=== PATIENT | male | born 1935 | race Caucasian/White ===

== ENCOUNTER 2019-05-29 16:21 | Observation (INO) | payer OTHER, SELFPAY ==
[2019-05-22 10:55] VITALS: BMI 30.5
[2019-05-28] VITALS (15 sets, daily range): BP systolic 109–157; BP diastolic 61–94; PULSE 64–80; RESP 11–20; TEMP 36.2–36.6; O2SAT 91–97; BMI 30.5
--- NOTE | 2019-05-28 15:26 | PM.PREOP ---
Pre-operative Note Interval Note History & Physical reviewed/Exam performed by Physician: Yes Changes to H&P: No
[2019-05-28] MEDS: CEFAZOLIN 2 GM/100 ML FROZ.PIGGY IV ×2 (16:04→23:33)
--- NOTE | 2019-05-28 16:31 | SUR.OPER ---
Prone on spine table, head in foam head support, padded chest and pelvic supports, gel pad at knees, lower legs supported by pillows; nipples, genitalia and toes free of pressure, arms secured on foam padded arm boards at <90 degrees abduction. Tape over blanket at thigh secured to table.
[2019-05-28] MEDS: BUPIVACAINE 0.25% W/ EPI 30 ML VIAL INJ (16:35)
[2019-05-28] MEDS: LACTATED RINGERS 1,000 ML 42 ML IV (16:37)
--- NOTE | 2019-05-28 16:39 | SUR.OPER ---
DENTURES AND HEARING AIDS IN LABELED CONTAINERS TO PACU WITH PATIENT
--- NOTE | 2019-05-28 17:47 | P.OP_ITS ---
Operative Date/Time/Diagnoses Date of procedure: 05/28/19 Time of procedure: 16:04 Pre-op diagnosis: 1. L2-3, L3-4 spinal stenosis 2. Neurogenic claudication Post-op diagnosis: same Procedure & Clinicians Procedure: 1. L2-3, L3-4 laminectomies with bilateral partial facetectomies 2. Utilization of microsurgical technique and operating microscope Same procedure as scheduled: Yes Indications: Patient has been having chronic back pain and worsening lumbar radiculopathy. Patient failed multiple conservative management with worsening pain weakness and numbness in her lower extremity. Patient has been having difficulty performing activity of daily living. After discussing risks benefits of treatment options, patient elected proceed with surgery. Surgeon: Rafi Florez [employer] Teacher: Maria Eugenia Hernandez'Brien Click Yes if Unassisted: No Anesthesia Type: General Operative Notes Closure Type: primary Specimen(s): none sent Estimated Blood Loss (mL): 50 Blood products transfused: none Procedure in detail: Patient was seen in the preoperative area. Risks and benefits of the surgery was discussed with the patient. Informed consent was obtained from the patient and placed in the chart. Surgical site was marked. Patient was taken to the operative room. General anesthesia was administered. Prophylactic antibiotic was given to the patient less than 30 min before the incision was made. Patient was placed into a prone position on the Eddy table. Patient's back was then prepped and draped in the sterile fashion. Time- out was performed at this time. Using AP and lateral C-arm imaging the interval between L2-3 L3-4 was identified and marked on patient's back. A midline incision was made over the L2-3 L3-4 interval. The fascia was incised in line with skin incision. Dissection was made down to the level of L2 and L3 lamina using bovie and a espinoza. Using microsurgical technique and operating microscope, a L2-3 L3-4 laminectomy was performed using a Kerrison rongeur, Leksell rongeur and micro pituitary. Liagamentum flavum was resected at the site of the laminotomy. Either side of the dura was exposed. Bilateral partial facetcomies was performed to further decompress the lateral recess. After the laminectomies was completed, the area medial lateral superior and inf erior to the area of the laminectomies was inspected and explored using a micro curette. No other impinging structure was identified. The wound was then irrigated with sterile normal saline. The deep fascia was closed with 1-0 Vicryl. The subcutaneous tissue was closed with 2-0 Vicryl. The skin was closed skin stefanie. Patient tolerated the procedure well. There were no complications. Patient was transferred recovery room in stable condition. Complications: none Post-operative Condition: stable Disposition: PACU Plan for aftercare: Admit for observation
[2019-05-28] MEDS: SODIUM CHLORIDE 0.9% 1,000 ML 100 ML IV (20:01)
--- NOTE | 2019-05-28 22:35 | PC.NURSE ---
Pt arrived at 1930 Resting at intervals this evening. Denies discomfort at this time. IV NS @ 100 into RFA via pump w/o incidence, Dsg to surgical back CDI. Call light w/in reach, bed alarm on for pt safety, Continue w/plan of care.
[2019-05-28] MEDS: OXYCODONE IR 5 MG TABLET 10 MG PO (23:32)
[2019-05-29] VITALS (10 sets, daily range): BP systolic 115–142; BP diastolic 60–77; PULSE 65–77; RESP 14–18; TEMP 36.7–37.4; O2SAT 95–97
[2019-05-29] MEDS: ACETAMINOPHEN 325 MG TABLET 650 MG PO (04:48)
--- NOTE | 2019-05-29 05:18 | PC.NURSE ---
Pt Axox3, VSS, Lung sounds clear bilaterally. Pt is JAMUL. Pt had 4/10 back pain. Medicated with 10mg of Oxycodone at 2330, and Tylenol 650mg at 0500. Pt has [place] Dressing clean/dry/intact. CMS is intact. SCD's are applied and IS is encouraged. Call light is within reach.
[2019-05-29] MEDS: CEFAZOLIN 2 GM/100 ML FROZ.PIGGY IV (07:40)
[2019-05-29] MEDS: DOCUSATE 100 MG CAPSULE PO ×2 (08:16→21:22)
[2019-05-29] MEDS: TAMSULOSIN 0.4 MG CAPSULE PO (08:16)
[2019-05-29] MEDS: guaiFENesin ER 600 MG TAB PO ×2 (08:16→21:22)
[2019-05-29] MEDS: dilTIAZem 30 MG TABLET 60 MG PO ×2 (08:17→21:22)
[2019-05-29] MEDS: CITALOPRAM 20 MG TABLET 40 MG PO (08:17)
[2019-05-29] MEDS: CARVEDILOL 12.5 MG TABLET PO ×2 (08:20→21:23)
[2019-05-29] MEDS: IPRATROPIUM HFA 2 PUFF INH (09:26)
[2019-05-29] MEDS: LEVALBUTEROL HFA 200 PUFF INH INH (09:26)
--- NOTE | 2019-05-29 10:09 | PT.IIE ---
Current Diagnoses Spinal stenosis, lumbar region with neurogenic claudication (05/28/19) Surgery Performed Operation Date: 05/28/19 15:15 Actual Procedures p L2-3, L3-4 Laminectomy(Not Applicable) - Rafi Florez MD Surgical History (Last Updated 05/22/19 @ 12:09 by Sherin Mckeon, RN) Hx of foot surgery (Acute) Hx of laminectomy (Acute) Medical History (Last Updated 05/22/19 @ 12:25 by Sherin Mckeon RN) Anxiety disorder (Acute) BPH (benign prostatic hyperplasia) (Acute) CKD (chronic kidney disease), stage III (Acute) COPD (chronic obstructive pulmonary disease) (Acute ~2017) Dementia (Acute) Elevated troponin level (Acute 04/08/19) Foot abscess, right (Acute) Former smoker (Acute) Gout (Acute) [place] (hard of hearing) (Acute) HTN (hypertension) (Acute) IBS (irritable bowel syndrome) (Acute) Incomplete left bundle branch block (LBBB) (Acute) Low back pain (Acute) MRSA (methicillin resistant Staphylococcus aureus) (Acute) Orthostatic hypotension (Acute) Polio (Acute) Short-term memory loss (Acute) SVT (supraventricular tachycardia) (Acute) Syncope (Acute 04/08/19) Systolic left heart failure, NYHA class 2 (Acute) Physical Therapy Inpatient Evaluation/Re-Eval M1 PT/OT-IP Prior Functional Status Start: 05/29/19 12:20 Freq: NEEDED Status: Active Protocol: Document 05/29/19 10:09 AB (Rec: 05/29/19 12:33 AB [id number]) Medical Review Prior Functional Status Medical History Reviewed Yes Communication able to make needs known; very [place] Mobility and Gait stated that he is modified independent with mobilities: uses 4WW for indoor ambulation and his hurrycane for outdoor ambulation Social History Household Members spouse Living Arrangements House Number of Floors (Floors) Two Floors Number of Stairs To Enter/Railing? pt stays on main level of the house has 4 steps to enter with bilateral rails Home Environment Standard Height Toilet,Walk in Shower Home Equipment Front Wheel Walker,Four Wheel Walker,Straight Cane,Shower Seat without Backrest,Hand Held Shower,Grab Bars Near Toilet,Grab Bars In Shower Employment Status Retired Additional Social History Comment pt has a hurrycane M2 PT-IP Current Condition Start: 05/29/19 12:20 Freq: NEEDED Status: Active Protocol: Document 05/29/19 10:09 AB (Rec: 05/29/19 12:33 AB [id number]) Physical Therapy Current Condition Current Condition Evaluation Date 05/29/19 Treatment Diagnosis s/p L2-3,L3-4 lami with facetectomies; difficulty in walking Onset Date 05/28/19 Precautions Lumbar Precautions Log Roll,No Twisting,Limit Bending,Lifting Restriction of 10 lbs,Gait Belt above Incisional Area M3 PT-IP Subjective Start: 05/29/19 12:20 Freq: NEEDED Status: Active Protocol: Document 05/29/19 10:09 AB (Rec: 05/29/19 12:33 AB [id number]) Subjective Physical Therapy Visit Type Type Initial Evaluation Visit Start Time 10:09 Visit Stop Time 10:57 Total Visit Minutes 48 Number of WHEAT GROWER Visits 0 Physical Therapy Visit Comments Patient Comments pt agreeable to do PT. Patient Goals to go home Therapy Pain Assessment Pain When Pain Assessed At Rest Pain Present Pain Present Pain Reported Location Back Intensity 4 Scale Used Numeric (1 - 10) Pain Management Techniques Apply Cold,Re-positioning, Timing of Activity with Medications M4 PT-IP Mobility and Gait Start: 05/29/19 12:20 Freq: NEEDED Status: Active Protocol: Document 05/29/19 10:09 AB (Rec: 05/29/19 12:33 AB [id number]) PT-Bed Mobility Assessment Rolling Type of Rolling Log Rolling Level of Assist Moderate Assistance,1 Person Assistance Supine to Sit Supine to Sit Moderate Assistance,Maximum Assistance,1 Person Assistance Sit to Supine Sit to Supine Minimal Assistance,1 Person Assistance PT-Transfer Assessment Sit to and From Stand Sit to and from Stand Minimal Assistance,1 Person Assistance,Use of Upper Extremities Equipment Transfer Assistive Device Bed Rail,Front Wheeled Walker Orthotic/Prosthetic Devices or Brace: No Transfers Transfer Destination Bed,Chair Transfer Technique Stand Step Pivot Transfer Ability Level of Assist Minimal Assistance,1 Person Assistance,Use of Upper Extremities Comments Mobility Comments (+) SOB/ wheezing during mobility. O2 sat 97% Gait Assessment Gait Gait Assistance Required: Minimum Assistance Distance (Feet) 15 Able to Maintain Weight Bearing Status Yes During Gait Assistive Devices Assistive Device Gait Belt,Front Wheeled Walker Orthotic/Prosthetic Devices or Brace: No Gait Deviations General Gait Pattern Decreased Stride Length, Decreased Feet Clearance Factors Limiting Gait Function Factors Limiting Gait Function Decreased Activity Tolerance, Decreased Strength,Limited Range of Motion,Pain,Poor Balance,Poor Safety Awareness, Respiratory Distress Comments Gait Comments pt can be impulsive and requires cues for safety. pt ambulated in room and refused to do further ambulation stating that he is tired. PT-Balance Assessment Sitting Balance and Reactions Static Sitting Balance Ability Good Dynamic Sitting Balance Ability Good Standing Balance and Reactions Static Standing Balance Ability Fair Dynamic Standing Balance Ability Fair Device Used FWW M5 PT-IP Objective Assessments Start: 05/29/19 12:20 Freq: NEEDED Status: Active Protocol: Document 05/29/19 10:09 AB (Rec: 05/29/19 12:33 [id number]) Orientation Orientation/Cognition Level of Alertness Alert Orientation Name,Place,Situation Language Function Ability Hard of Hearing Safety Awareness Decreased Safety Awareness Memory Description Short Term Impaired,Rock Climbing Instructor Impaired Gross Range of Motion Lower Extremity ROM Assessment Within Functional Limits Strength Lower Extremity Strength Assessment Bilaterally Impaired Hip 4-/5 Knee 4-/5 Sensation Assessment Sensation Gross Sensation WNL Muscle Tone Muscle Tone WNL Yes M6 PT-IP Treatment Start: 05/29/19 12:20 Freq: NEEDED Status: Active Protocol: Document 05/29/19 10:09 AB (Rec: 05/29/19 12:33 [id number]) Physical Therapy Treatment Education Education Provided Precautions,Weight Bearing Status,Post-Op Packet,Safety M7 PT-IP Assessment and Plan Start: 05/29/19 12:20 Freq: NEEDED Status: Active Protocol: Document 05/29/19 10:09 AB (Rec: 05/29/19 12:33 [id number]) PT Summary Assessment and Plan Potential Rehabilitation Potential Good Status of Condition at Evaluation Evolving Summary Impairments Pain,ROM,Strength,Balance, Coordination,Sensation,Tone, Cognition,Bed Mobility, Transfers,Gait,Activity Tolerance Assessment Summary pt requiring max A with supine to sit and presents with unsteady gait and decrease safety awareness. pt will likely progress in mobility during hospital stay. pt plans to go home and spouse to assist him. will monitor progress for safe d/c plan Goals Bed Mobility Goal Independent Transfer Goal Independent,Front Wheeled Walker Gait Goal Independent,Front Wheel Walker Gait Distance 150 Other Goals up/down 4 steps with bilateral rails SBA Days to Meet Goals 5 Frequency of Treatment Frequency Of Treatment Twice a Day Treatment Plan Physical Therapy Treatment Plan Bed Mobility Training,Transfer Training,Gait Training, Therapeutic Exercise,Balance Retraining,Post Op Education, Discharge Planning,Hot or Cold Pack,Neuromuscular Re-ed, Coordination Retraining,Manual Therapy Other Recommendations and Next Treatment bed mobility, sit <>stand, Focus transfers, ambulation Recommendations To Nursing Amount of Assist Needed 1 Person Assist Discharge Recommendations PT Discharge Recommendations Home with Assistance
[2019-05-29] MEDS: OXYCODONE IR 5 MG TABLET 10 MG PO ×2 (10:27→18:14)
--- NOTE | 2019-05-29 15:20 | PT.IPTN ---
Current Diagnoses Spinal stenosis, lumbar region with neurogenic claudication (05/29/19) Surgery Performed Operation Date: 05/28/19 15:15 Actual Procedures p L2-3, L3-4 Laminectomy(Not Applicable) - Rafi Florez MD Physical Therapy Treatment Note M2 PT-IP Current Condition Start: 05/29/19 12:20 Freq: NEEDED Status: Active Protocol: Document 05/29/19 10:09 AB (Rec: 05/29/19 12:33 AB [id number]) Physical Therapy Current Condition Current Condition Evaluation Date 05/29/19 Treatment Diagnosis s/p L2-3,L3-4 lami with facetectomies; difficulty in walking Onset Date 05/28/19 Precautions Lumbar Precautions Log Roll,No Twisting,Limit Bending,Lifting Restriction of 10 lbs,Gait Belt above Incisional Area M3 PT-IP Subjective Start: 05/29/19 12:20 Freq: NEEDED Status: Active Protocol: Document 05/29/19 15:20 AB (Rec: 05/29/19 17:35 AB [id number]) Subjective Physical Therapy Visit Type Type Treatment Note Visit Start Time 15:20 Visit Stop Time 15:40 Total Visit Minutes 20 Number of ROTARY DRILLER PROSPECTING Visits 0 Physical Therapy Visit Comments Patient Comments pt agreeable to do PT; refused to do stair climbing training this afternoon but agreed to do it tomorrow Therapy Pain Assessment Pain When Pain Assessed At Rest Pain Present Pain Present Pain Reported Location Back Intensity 2 Scale Used Numeric (1 - 10) Pain Management Techniques Re-positioning,Timing of Activity with Medications M4 PT-IP Mobility and Gait Start: 05/29/19 12:20 Freq: NEEDED Status: Active Protocol: Document 05/29/19 15:20 AB (Rec: 05/29/19 17:35 AB [id number]) PT-Bed Mobility Assessment Supine to Sit Supine to Sit Contact Guard Assistance Sit to Supine Sit to Supine Standby Assistance Scooting Scooting to Edge of Bed Contact Guard Assistance PT-Transfer Assessment Sit to and From Stand Sit to and from Stand Contact Guard Assistance,1 Person Assistance,Use of Upper Extremities Equipment Transfer Assistive Device Gait Belt,Front Wheeled Walker Orthotic/Prosthetic Devices or Brace: No Comments Mobility Comments bed mobility training conducted x 2 sets: pt completed sit to supine log roll bed mobility SBA but required CGA with max cues for supine to sit. pt tends to just lift the upper body off the bed from a supine position . pt has difficulty with following directions and has decrease short term memory. spouse stated that pt has difficulties with memory and understand even before surgery . pt requested to stay in bed. position pt on the bed. call light and table placed within reach. Gait Assessment Gait Gait Assistance Required: Contact Guard Assist,1 Person Assist Distance (Feet) 50 Able to Maintain Weight Bearing Status Yes During Gait Assistive Devices Assistive Device Gait Belt,Front Wheeled Walker Orthotic/Prosthetic Devices or Brace: No Gait Deviations General Gait Pattern Antalgic,Decreased Stride Length,Decreased Feet Clearance Factors Limiting Gait Function Factors Limiting Gait Function Decreased Activity Tolerance, Decreased Strength,Difficulty Following Directions,Limited Range of Motion,Pain,Poor Balance,Poor Safety Awareness, Respiratory Distress Comments Gait Comments O2 sat 94-96% with activity. pt has decrease safety awareness and requires constant cues. spouse stated that he cannot assist the pt physically but can assist him in some other ways. M5 PT-IP Objective Assessments Start: 05/29/19 12:20 Freq: NEEDED Status: Active Protocol: Document 05/29/19 10:09 AB (Rec: 05/29/19 12:33 AB [id number]) Orientation Orientation/Cognition Level of Alertness Alert Orientation Name,Place,Situation Language Function Ability Hard of Hearing Safety Awareness Decreased Safety Awareness Memory Description Short Term Impaired,Longterm Impaired Gross Range of Motion Lower Extremity ROM Assessment Within Functional Limits Strength Lower Extremity Strength Assessment Bilaterally Impaired Hip 4-/5 Knee 4-/5 Sensation Assessment Sensation Gross Sensation WNL Muscle Tone Muscle Tone WNL Yes M6 PT-IP Treatment Start: 05/29/19 12:20 Freq: NEEDED Status: Active Protocol: Document 05/29/19 15:20 AB (Rec: 05/29/19 17:35 [id number]) Physical Therapy Treatment Education Education Provided Precautions,Safety Other Treatments Other Treatment Performed pt requires cues to recall back precautions M7 PT-IP Assessment and Plan Start: 05/29/19 12:20 Freq: NEEDED Status: Active Protocol: Document 05/29/19 15:20 AB (Rec: 05/29/19 17:35 [id number]) PT Summary Assessment and Plan Potential Rehabilitation Potential Fair Summary Impairments Pain,ROM,Strength,Balance, Coordination,Sensation,Tone, Cognition,Bed Mobility, Transfers,Gait,Activity Tolerance Progress Towards Goals Slow Progress due to Activity Tolerance,Slow Progress - Other Assessment Summary pt requiring CGA to min A with mobility. d/c plan depending on progress. spouse stated that she cannot assist the pt physically. pt also has decrease memory and safety awareness and requires constant cues. will conduct caregiver training when appropriate. will also have to conduct stair climbing training. will continue to monitor progress. Goals Bed Mobility Goal Independent Transfer Goal Independent,Front Wheeled Walker Gait Goal Independent,Front Wheel Walker Gait Distance 150 Other Goals up/down 4 steps with bilateral rails SBA Days to Meet Goals 5 Frequency of Treatment Frequency Of Treatment Twice a Day Treatment Plan Physical Therapy Treatment Plan Bed Mobility Training,Transfer Training,Gait Training, Therapeutic Exercise,Balance Retraining,Post Op Education, Discharge Planning,Hot or Cold Pack,Neuromuscular Re-ed, Coordination Retraining,Manual Therapy Other Recommendations and Next Treatment bed mobility, sit <>stand, Focus transfers, ambulation Recommendations To Nursing Amount of Assist Needed 1 Person Assist Discharge Recommendations PT Discharge Recommendations Home with / Assist,Home Health
--- NOTE | 2019-05-29 16:01 | OT.IP.TRT ---
Current Diagnoses Spinal stenosis, lumbar region with neurogenic claudication (05/28/19) Surgery Performed Operation Date: 05/28/19 15:15 Actual Procedures p L2-3, L3-4 Laminectomy(Not Applicable) - Rafi Florez MD Occupational Therapy Treatment Note M3 OT- IP Subjective and Pain Start: 05/29/19 15:58 Freq: Status: Active Protocol: Document 05/29/19 16:00 [facility] (Rec: 05/29/19 16:01 [facility] [id number]) OT- Subjective Occupational Therapy Visit Type Type Patient Refusal Notes Pt just finished seeing PT and wanting to rest, therefore to do OT eval tomorrow. Able to ask pt and prior level status and set-up at home. No charge.
--- NOTE | 2019-05-29 16:30 | PM.PNPO.1 ---
Subjective Subjective Date Patient Seen: 05/29/19 Time Patient Seen: 07:30 Interval history: Post op day 1 s/p L2-3, L3-[address] Florez. Patient has mild cognitive impairment that is slowing progress with physical therapy. Pain is well controlled with oxycodone and tylenol. Patient is voiding, eating and had a bowel movement. His caregiver () is requesting home health considering 1-assist and cognitive impairment. Patient has no complaints. Exam Vital Signs (past 8 hours): - 05/29/19 12:02 05/29/19 15:40 Temperature 98.3 F 98.0 F Pulse Rate 77 70 Respiratory Rate 15 18 Blood Pressure 142/71 H 126/77 Pulse Oximetry 97 96 Oxygen Delivery Method Nasal Cannula Oxygen Flow Rate 0 Narrative Exam Narrative: 83 year old male is laying comfortably in bed, in no apparent distress. A&Ox2. Dressing is CDI. Lumbar back is non-edematous, nttp, no erythema, rashes or lesions. Patient is able to actively plantar flex/dorsiflex. Dorsalis pedis 2+ b/l. Capillary refill <2 seconds LE b/l. Assessment & Plan Post-op Postoperative Procedures: Procedures Operation Date: 05/28/19 15:15 Actual Procedures Side Surgeon p L2-3, L3-4 Laminectomy Not Applicable Rafi Florez MD Postoperative status: doing well Postoperative plan narrative: Post op day 1 s/p L2-3, L3-4 laminectomies Patient has mild cognitive impairment and is a 1-assist. Recommend he receive home health assistance. Plan for physical therapy in the morning and then most likely discharge home. Continue current pain management Time Spent With Patient Time with patient: less than 15 minutes Quality VTE Deep Vein Thrombosis/Pulmonary Embolism Present on Admission: No
[2019-05-29] MEDS: SENNOSIDES 8.6 MG TABLET 17.2 MG PO (21:22)
[2019-05-30 01:35] VITALS: BP 153/91; PULSE 91; RESP 19; TEMP 36.7; O2SAT 98
[2019-05-30] MEDS: ACETAMINOPHEN 325 MG TABLET 650 MG PO ×2 (02:07→08:33)
--- NOTE | 2019-05-30 03:41 | PC.NURSE ---
Addendum entered by Hina Herzog R.N. 05/30/19 05:20: Respiratory Therapy called at 0300, On Floor at 0510 to give inhalers and breathing treatment. Pt no longer wheezing. Addendum entered by Hina Herzog R.N. 05/30/19 04:14: Pt CMS intact, IS encouraged, SCDs placed, medicated w/ tylenol for pain. Original Note: Pt VSS, lung sounds clear but patient is wheezing on expiration. Pt states, I wheeze at home. Pt dressing needed re-inforecemnent, bandage applied. Pt up w/ FWW to bathroom, 1 person assist. Pt had new IV site started, pink erythema area at previous site. New site started in right AC.
[2019-05-30] MEDS: IPRATROPIUM HFA 2 PUFF INH (05:03)
[2019-05-30] MEDS: LEVALBUTEROL HFA 200 PUFF INH INH (05:03)
[2019-05-30 05:10] VITALS: O2SAT 98
[2019-05-30 06:37] VITALS: BP 127/68; PULSE 70; RESP 16; TEMP 36.5; O2SAT 96
[2019-05-30 07:00] VITALS: BP 139/68; PULSE 67; RESP 14; TEMP 36.7; O2SAT 95
[2019-05-30] MEDS: guaiFENesin ER 600 MG TAB PO (08:32)
[2019-05-30] MEDS: dilTIAZem 30 MG TABLET 60 MG PO (08:32)
[2019-05-30] MEDS: TAMSULOSIN 0.4 MG CAPSULE PO (08:32)
[2019-05-30] MEDS: CITALOPRAM 20 MG TABLET 40 MG PO (08:32)
[2019-05-30] MEDS: CARVEDILOL 12.5 MG TABLET PO (08:33)
[2019-05-30] MEDS: DOCUSATE 100 MG CAPSULE PO (08:33)
[2019-05-30] MEDS: MAGNESIUM HYDROXIDE 30 ML UDC PO (08:33)
--- NOTE | 2019-05-30 08:49 | PM.DS.1 ---
History of Present Illness History of Present Illness Date Patient Seen: 05/30/19 Time Patient Seen: 07:30 Chief complaint: [id number] L2-3 L3-4 LAMINECTOMY Narrative: Patient has been having chronic back pain and worsening lumbar radiculopathy. Patient failed multiple conservative management with worsening pain weakness and numbness in her lower extremity. Patient has been having difficulty performing activity of daily living. After discussing risks benefits of treatment options, patient elected proceed with surgery. Overnight patient had expiratory wheezing, hx of COPD, respiratory therapist consulted. Wheezing resolved with xoponex and atrovent. Patient denies wheezing this AM. Patient complains of stomach pain. Patient has passed gas and had bowel movement yesterday. Pain is well managed with oxycodone and tylenol. Patient denies fever, chills, nausea, vomiting, numbness, tingling, chest pain, shortness of breath, calf pain. Discharge Providers Provider Date of admission: 05/29/19 16:21 Discharge Date: 05/30/19 Primary care physician: Michael Guerrero Consults: 05/28/19 19:35 Consult to Occupational Therapy Evaluate & Treat Comment: Physician Instructions: Evaluate and treat Consult to Physical Therapy Evaluate & Treat Comment: Physician Instructions: Evaluate and Treat 05/28/19 19:36 Consult to Respiratory Therapy Evaluate & Treat Comment: Physician Instructions: Evaluate and treat Discharge provider: Delma Recinos PA-C Summary Hospital Course Discharge Diagnosis: s/p laminectomy dementia psoriasis precancerous skin lesions UE Macular deterioration Inflammatory bowel disease Hypertension Gout COPD Benign prostatic hypertrophy Hospital Course: Patient was admitted to hospital s/p laminectomy with Dr. Florez. Hospital course was unremarkable. Patient progressed slowly with physical therapy secondary to cognitive impairment. Patient voiding and eating without difficulty or assistance prior to discharge. Pain managed with oxycodone and tylenol. Patient given prescription for oxycodone 5mg 1-2 tablets PO q3h PRN #40. Patient takes norco at home, caregiver instructed to not give norco in addition to prescribed oxycodone and tylenol. Patient requires home health assistance due to cognitive impairment, 1-assist and caregiver at home who is unable to physically assist. Exam Vital Signs (past 8 hours): - 05/30/19 01:35 05/30/19 05:10 05/30/19 06:37 Temperature 98.1 F 97.7 F Pulse Rate 91 H 70 Respiratory Rate 19 16 Blood Pressure 153/91 H 127/68 Pulse Oximetry 98 98 96 05/30/19 07:00 Temperature 98.0 F Pulse Rate 67 Respiratory Rate 14 Blood Pressure 139/68 Pulse Oximetry 95 Oxygen Delivery Method Room Air Oxygen Flow Rate 0 Narrative Exam Narrative: 83 year old male, laying comfortably in bed, in no apparent distress. A&Ox2. Dressing is CDI. Patient able to actively dorsiflex/plantar flex. Sensory function grossly intact to light touch in LE b/l. Dorsalis Pedis 2+ b/l. Capillary refill <2seconds LE b/l. Discharge Plan Discharge Plan Patient Disposition: Home Health Service Transfer to: [facility] Discharge comment: Discharge home with replaced by [facility], [facility]. Discharge Med Rec/Prescriptions Prescriptions: New oxycodone 5 mg tablet 5 mg PO Q3H PRN (Reason: pain) Qty: 40 RF: 0 acetaminophen [Tylenol Extra Strength] 500 mg tablet 500 mg PO Q4H PRN (Reason: pain) Qty: 60 RF: 0 Continued carvedilol 12.5 mg Tablet 12.5 mg PO BID RF: 0 citalopram 40 mg Tablet 40 mg PO DAILY RF: 0 tamsulosin 0.4 mg Capsule 0.4 mg PO DAILY RF: 0 diltiazem HCl 60 mg Tablet 60 mg PO BID RF: 0 levalbuterol tartrate 45 mcg/actuation Hfa Aerosol Inhaler 2 puff INHALATION Q4-6H PRN (Reason: Shortness Of Breath) RF: 0 Atrovent HFA 17 mcg/actuation Hfa Aerosol Inhaler 2 puff INHALATION DAILY RF: 0 guaifenesin [Mucinex] 600 mg Tablet Extended Release 12hr 600 mg PO BID RF: 0 Discontinued aspirin 81 mg Tablet,Delayed Release (Dr/Ec) 81 mg PO DAILY RF: 0 Follow up/Referrals: Rafi Florez MD [Physician] - Michael Guerrero [Primary Care Provider] - Provider Discharge Instructions Diet: Regular Activity: weight bearing as tolerated. follow laminectomy precautions Cold/Heat Therapy: continue cold/heat therapy as needed Skin/Wound/Dressing Care Report to your healthcare provider any signs of infection, such as:: chills, fever, increased pain, unusual drainage and unusual redness Dressing: keep dressing dry. if dressing becomes saturated, please contact the office. Visit Report/Discharge Packet Instructions: DI for Laminectomy Stand Alone Forms: Surgery Discharge Visit Report Forms: Patient Portal/API, Stroke Signs & Symptoms Discharge Data Primary Care Provider: Michael Guerrero Attending Provider: Rafi Florez Admit Date/Time: 05/29/19 16:21 Quality VTE Deep Vein Thrombosis/Pulmonary Embolism Present on Admission: No
--- NOTE | 2019-05-30 08:58 | CM.DPC ---
DCP Cont: Patient is being discharge today. Spoke to LENY Kaur/shannan, and stated that Dr. Florez would sign a face to face for [facility], per family's choice, for P.T, O.T, bath aide. Received signed face to face. Confirmed with Stefanie at [facility] that he has not yet been with their services. Faxed over face to face, orders, DC summary and face sheet to [facility]. P: Patient is to be discharged home today with [facility]. Aundrea Jesus RN/[employer]
[2019-05-30 10:07] VITALS: O2SAT 97
--- NOTE | 2019-05-30 10:16 | OT.IP.TRT ---
Current Diagnoses Spinal stenosis, lumbar region with neurogenic claudication (05/29/19) Surgery Performed Operation Date: 05/28/19 15:15 Actual Procedures p L2-3, L3-4 Laminectomy(Not Applicable) - Rafi Florez MD Occupational Therapy Treatment Note M3 OT- IP Subjective and Pain Start: 05/29/19 15:58 Freq: Status: Active Protocol: Document 05/30/19 10:10 [facility] (Rec: 05/30/19 10:15 [facility] [email or web address]) OT- Subjective Occupational Therapy Visit Type Type Treatment Note Visit Start Time 10:00 Visit Stop Time 10:08 Total Visit Minutes 8 Notes Pt's states feels comfortable to be able to assist pt at home for ADL needs. Able to talk to her about back precautions. Due to pt having dementia, pt's and therapist have agreed that would be best for pt's to assist for all ADL needs versus have pt try to use adaptive equipment for needs, and emphasized to his may have to assist to wipe during toileting needs. Pt has all OT equipment needs at home.
--- NOTE | 2019-05-30 10:50 | PT.IPTN ---
Current Diagnoses Spinal stenosis, lumbar region with neurogenic claudication (05/29/19) Surgery Performed Operation Date: 05/28/19 15:15 Actual Procedures p L2-3, L3-4 Laminectomy(Not Applicable) - Rafi Florez MD Physical Therapy Treatment Note M2 PT-IP Current Condition Start: 05/29/19 12:20 Freq: NEEDED Status: Active Protocol: Document 05/29/19 10:09 AB (Rec: 05/29/19 12:33 AB [id number]) Physical Therapy Current Condition Current Condition Evaluation Date 05/29/19 Treatment Diagnosis s/p L2-3,L3-4 lami with facetectomies; difficulty in walking Onset Date 05/28/19 Precautions Lumbar Precautions Log Roll,No Twisting,Limit Bending,Lifting Restriction of 10 lbs,Gait Belt above Incisional Area M3 PT-IP Subjective Start: 05/29/19 12:20 Freq: NEEDED Status: Active Protocol: Document 05/30/19 10:50 [facility]GD (Rec: 05/30/19 12:01 [facility]GD [email or web address]) Subjective Physical Therapy Visit Type Type Treatment Note Visit Start Time 10:27 Visit Stop Time 10:50 Total Visit Minutes 23 Number of IGNITION MECHANIC Visits 1 Physical Therapy Visit Comments Patient Comments Pt willing to work with therapy. Therapy Pain Assessment Location Back Intensity 8 Scale Used Numeric (1 - 10) Pain Management Techniques Re-positioning,Timing of Activity with Medications M4 PT-IP Mobility and Gait Start: 05/29/19 12:20 Freq: NEEDED Status: Active Protocol: Document 05/30/19 10:50 [facility]GD (Rec: 05/30/19 12:01 [facility]GD [email or web address]) PT-Transfer Assessment Sit to and From Stand Sit to and from Stand Contact Guard Assistance,1 Person Assistance,Use of Upper Extremities Equipment Transfer Assistive Device Gait Belt,Front Wheeled Walker Orthotic/Prosthetic Devices or Brace: No Transfers Transfer Destination Toilet Transfer Ability Level of Assist Contact Guard Assistance,1 Person Assistance,Use of Upper Extremities Gait Assessment Gait Gait Assistance Required: Contact Guard Assist,1 Person Assist Distance (Feet) 120 Able to Maintain Weight Bearing Status Yes During Gait Assistive Devices Assistive Device Gait Belt,Front Wheeled Walker Orthotic/Prosthetic Devices or Brace: No Gait Deviations General Gait Pattern Antalgic,Decreased Stride Length,Decreased Feet Clearance Factors Limiting Gait Function Factors Limiting Gait Function Decreased Activity Tolerance, Decreased Strength,Difficulty Following Directions,Limited Range of Motion,Pain,Poor Balance,Poor Safety Awareness, Respiratory Distress Stair Climbing Assessment Evaluation Level of Assist On Stairs Contact Guard Assistance,1 Person Assistance Devices Stair Climbing Assistive Devices Right Railing Technique/Endurance Stair Climbing Direction Ascend and Descend Stair Climbing Technique Step to Step Number of Steps Climbed 3 Stair Climbing Set # Repetitions (reps) 1 M5 PT-IP Objective Assessments Start: 05/29/19 12:20 Freq: NEEDED Status: Active Protocol: Document 05/29/19 10:09 AB (Rec: 05/29/19 12:33 AB [id number]) Orientation Orientation/Cognition Level of Alertness Alert Orientation Name,Place,Situation Language Function Ability Hard of Hearing Safety Awareness Decreased Safety Awareness Memory Description Short Term Impaired,Correction Impaired Gross Range of Motion Lower Extremity ROM Assessment Within Functional Limits Strength Lower Extremity Strength Assessment Bilaterally Impaired Hip 4-/5 Knee 4-/5 Sensation Assessment Sensation Gross Sensation WNL Muscle Tone Muscle Tone WNL Yes M6 PT-IP Treatment Start: 05/29/19 12:20 Freq: NEEDED Status: Active Protocol: Document 05/30/19 10:50 GGD (Rec: 05/30/19 12:01 GGD [email or web address]) Physical Therapy Treatment Education Education Provided Precautions,Safety M7 PT-IP Assessment and Plan Start: 05/29/19 12:20 Freq: NEEDED Status: Active Protocol: Document 05/30/19 10:50 GGD (Rec: 05/30/19 12:01 GGD [email or web address]) PT Summary Assessment and Plan Summary Assessment Summary Pt improving with mobility. He needed cues for posture and safety. He is impulsive with mobility. He was safe and stable with stair mobility. Frequency of Treatment Frequency Of Treatment Twice a Day Treatment Plan Physical Therapy Treatment Plan Bed Mobility Training,Transfer Training,Gait Training, Therapeutic Exercise,Balance Retraining,Post Op Education, Discharge Planning,Hot or Cold Pack,Neuromuscular Re-ed, Coordination Retraining,Manual Therapy Recommendations To Nursing Amount of Assist Needed 1 Person Assist Discharge Recommendations PT Discharge Recommendations Home with 07/03 Assist,Home Health
--- NOTE | 2019-05-30 10:53 | PC.NURSE ---
Addendum entered by Latoya Madden R.N. 05/30/19 13:09: DC/GI - assist x1 person to br, no bm, lots flatus passed, saline lock dc'd, reviewed dc instructions with pt and spouse, script provided, belongings packed, including clothing, shoes, glasses and zackery hearing aids, examining chair assembler assisted with clothing, tsf to wc and escorted to family car. Original Note: AM NOTE - pt is up to chair before breakfast, very [place], does have zackery aids in, minimal discomfort, discussed medications and given 650mg po tylenol with breakfast, 2+ pedal edema, discussed constipation and added MOM to stool softener this am, passing flatus, when spouse arrived, met with SS and home health will be arranged, did not want any prune juice or more laxatives, some upper airway wheeze with exhertion, RT om and tmt provided, ambul hallway with phys therapy, gait steady, removed barrier dsg and stapled incision intact, no redness or drainage, replaced with coversite.
== END 2019-05-30 13:30 | disposition home health service (06) ==
LOC: OR 16:47
PROVIDERS: Admitting Provider Orthopaedic Surgery Orthopaedic Surgery of the Spine; PCP Internal Medicine; Visit Provider Orthopaedic Surgery Orthopaedic Surgery of the Spine
PROC: (CPT 63047; principal; 2019-05-28 15:15)
DX: M48.062 Spinal stenosis, lumbar region with neurogenic claudication (principal); I50.9 Heart failure, unspecified; F03.90 Unspecified dementia, unspecified severity, without behavioral disturbance, psychotic disturbance, mood disturbance, and anxiety; I44.7 Left bundle-branch block, unspecified; N18.3 Chronic kidney disease, stage 3 (moderate); J44.9 Chronic obstructive pulmonary disease, unspecified
CPT/HCPCS: 63047; 63048; 94640; 94760; 94762; 97116; 97162; 97530; 97535; G0378; J0330; J0690; J1100; J2405; J2704; J3010